=== PATIENT | female | born 1990 | race African-American/Black ===

== ENCOUNTER 2016-05-28 20:11 | Emergency (ER) | payer OTHER ==
[~2016-05-28] VITALS: Ht 170.2 cm; Wt 63.5 kg
[~2016-05-28 20:11] MED LIST: BENADRYL25 MG PO; HYDROCORTISONE3011 TP; NORCO 5-325 TA1 EACH PO; ONDANSETRON HCL8 M2 PO; PAIN RELIEVER500 M3 PO; POLYMYXIN B/TMP10 ML OP; PRENATAL; SERTRALINE HCL50 MG PO; ZPAK PO
[2016-05-28] MEDS ORDERED: PREDNISONE 20 M20 MG PO (21:09)
[2016-05-28] MEDS ORDERED: VENTOLIN HFA 1818 GM INH (21:09)
[2016-05-28 21:20] VITALS: BP 104/65
== END 2016-05-28 21:22 | disposition home or self-care (01) ==
LOC: ER 20:11
DX: J98.01 Acute bronchospasm (principal); Z77.22 Contact with and (suspected) exposure to environmental tobacco smoke (acute) (chronic)

== ENCOUNTER 2016-10-10 17:03 | Emergency (ER) | payer OTHER ==
[~2016-10-10] VITALS: Ht 170.2 cm; Wt 72.6 kg
--- NOTE | ~2016-10-10 | EKG ---
[address] [place] [address] ELECTROCARDIOGRAM REPORT Name: SAMMIEDNA Room #: SHANDA Jalloh#: [id number] Admission: 10/10/16 Attend Phys: Discharge: 10/10/16 Date of : 89 Report #: [id number] THIS REPORT FOR: //name// [facility] ED Test Date: 2016-10-10 Test Time: 17:02:45 Pat Name: EDNA CHAPA Department: Room: Gender: F Housing Assistant Property Manager: KELECHI : 1990 Requested By: Shanthi De La Garza Order Number: [id number] MD: Mike Britt Measurements Intervals [place] Rate: 75 P: 37 MN: 142 QRS: 55 QRSD: 75 T: 62 QT: 361 QTc: 404 Interpretive Statements Sinus rhythm No significant abnormality No previous ECG available for comparison Electronically Signed On 10-11-2016 10:47:47 CDT by Mike Britt [email or web address] <ELECTRONICALLY SIGNED> By: Mike Britt MD, [facility] 10/11/16 1047 1702 1702 Mike Britt MD, FACC /EPI
[~2016-10-10 17:03] MED LIST changes: +PREDNISONE 20 M20 MG PO; +VENTOLIN HFA 1818 GM INH
[2016-10-10 19:26] LABS: URINE BILIRUBIN NEGATIVE (Negative); URINE BLOOD NEGATIVE (Negative); URINE COLOR YELLOW; URINE GLUCOSE-RANDOM* NEGATIVE (Negative); URINE KETONES NEGATIVE (Negative); URINE LEUKOCYTES-REFLEX NEGATIVE (Negative); URINE PROTEIN (DIPSTICK) NEGATIVE (Negative)
[2016-10-10] MEDS ORDERED: NAPROSYN500 MG PO (21:24)
[2016-10-10 21:59] VITALS: BP 116/72
[2016-10-11 20:12] LABS: CHLAMYDIA TRACHOMATIS-PCR Negative (Negative); NEISSERIA GONORRHEA-PCR Negative (Negative)
== END 2016-10-10 21:25 | disposition home or self-care (01) ==
LOC: ER 17:03
PROVIDERS: Physician Assistant
DX: R10.2 Pelvic and perineal pain (principal); N89.8 Other specified noninflammatory disorders of vagina